=== PATIENT | female | born 1980 | race Caucasian/White ===

== ENCOUNTER 2024-11-26 13:50 | Emergency (ER) | payer SELFPAY ==
--- OUTSIDE RECORDS SUMMARY | 2024-11-26 13:59 | XMS REPORT | Continuity of Care Document ---
Author Name Unknown Address [address] [facility] [place] [address] Organization [facility] [place] Address [address] [facility] [place] [address] Care Team Providers Care Truck Driver'S Offsider Name Role Phone PCP, PATIENT DOES NOT HAVE A Primary Care Physic keron Unavailable SOCORRO NIETO Attending Clinician Unavail ANJEL Suazo Attending Clinician Unavailable Socorro Arevalo Attending Clinician + Payers Payer Name Policy Type Policy Number Effective Date Expirati on Date Source [employer] [facility] [facility] [id number] 2018 00:00:00 Problems Condition Name Condition Details Condition Category Status Onset Date Resolution Date Last Treatment Date Treating Clinician Comments Source Encounter for other contracept brisa management Encounter for other contracept brisa management Disease Active 08-27 00:00: 00 [facility] Normal delivery Normal delivery Disease Resolve d 07-14 00:00: 00 2024-08-27 00:00:00 2024-08-27 13:45:13 [facility] care and examinatio n immediatel y after delivery care and examinatio n immediatel y after delivery Disease Resolve d 07-14 00:00: 00 2024-08-27 00:00:00 2024-08-27 13:45:16 [facility] Allergies, Adverse Reactions, Alerts Allergy Name Allergy Type Status Severity Reaction(s) Onset Date Inactive Date Treating Clinician Comments Source DIVALPRO EX SODIUM DRUG INGREDI Active Hives 09-02 00:00: 00 [facility] Penicill ins Propensi ty to adverse reaction s to drug Active Unknown - See comments 07-13 00:00: 00 [facility] PENICILL INS Drug Class Active Unknown-Cmnt 07-13 00:00: 00 [facility] Social History Social Habit Start Date Stop Date Quantity Comments Source ASSERTION Possible [facility] Tobacco use and exposure 2024-08-27 00:00:00 2024-08-27 00:00:00 Smokeless tobacco non-user [facility] Alcoholic beverage intake 2024-08-27 00:00:00 2024-08-27 00:00:00 Ex-drinker (finding) [facility] History of Social function 2024-08-27 00:00:00 2024-08-27 00:00:00 [facility] Sex assigned at 1980 00:00:00 1980 00:00:00 [facility] Smoking Status Start Date Stop Date Source Never smoked tobacco [facility] Medications Ordered Medication Name Filled Medication Name Start Date Stop Date Current Medication? Ordering Clinician Indication Dosage Frequency Signature (SIG) Comments Components Source acyclovir 400 mg tablet 09-11 00:00: 00 Yes [id number] 400mg Take 1 tablet by mouth in the morning and 1 tablet in the evening. [facility] PHENYTOIN SODIUM EXTENDED (DILANTIN ORAL) 08-27 13:35: 30 Yes Take by mouth. [facility] Immunizations Ordered Immunization Name Filled Immunization Name Date Status Comments Source TDAP 2018-03-13 00:00:00 Completed [facility] Vital Signs Vital Name Observation Time Observation Value Comments S lindsaygeorge Systolic blood pressure 2024-08-27 18:29:00 114 mm[Hg] [facility] Diastolic blood pressure 2024-08-27 18:29:00 78 mm[Hg] [facility] Heart rate 2024-08-27 18:29:00 84 /min [facility] Body temperature 2024-08-27 18:29:00 36.78 Kari [facility] Respiratory rate 2024-08-27 18:29:00 17 /min [facility] Body height 2024-08-27 18:29:00 162.6 cm [facility] Body weight 2024-08-27 18:29:00 52.816 kg [facility] BMI 2024-08-27 18:29:00 19.99 kg/m2 [facility] Procedures Procedure Date / Time Performed Performing Clinicia n Source PAP SMEAR-LIQUID BASED-CP 2024-08-27 20:49:00 Socorro Nieto [facility] HIV 1/2 AG-AB WITH REFLEX 2024-08-27 19:34:00 Socorro Nieto [facility] SYPHILIS IGG/IGM 2024-08-27 19:34:00 Judah Nieto [facility] POCT TEST 2024-08-27 00:00:00 George Nieto [facility] Encounters Start Date/Time End Date/Time Encounter Type Admission Type Attending Clinicians Care Facility Care Department Encounter ID Source 2024-10-15 06:41:54 2024-10-15 23:59:00 Hospital Encounter R SOCORRO NIETO AT [facility] [id number] [facility] 2024-10-14 13:30:00 2024-10-14 13:30:00 Outpatient R ANJEL BORJA [facility] [id number] [facility] 2024-09-11 00:00:00 2024-09-11 15:30:23 Telephone Socorro Nieto [facility] INDUSTRIAL [employer]GANIZATION MANAGER [facility] [id number] [facility] 2024-09-11 11:00:00 2024-09-11 11:00:00 Outpatient R SOCORRO NIETO [facility] [id number] [facility] 2024-09-11 10:45:00 2024-09-11 10:45:00 Outpatient Gigi SOCORRO NIETO [facility] [id number] [facility] 2024-08-27 13:00:00 2024-08-27 14:40:58 Office Visit Socorro Barr [facility] INDUSTRIAL ORGANIZATION MANAGER [facility] [id number] [facility] 2024-07-17 14:06:16 2024-07-17 14:06:16 Outpatient SFA SFA [id number] Barry Devyn [place] Results Test Description Test Time Test Comments Results Result Co mments Source [facility] Notes Date/Time Note Provider Source 2024-09-11 15:29:46 Called pt, notified medication sent to pharmacy.verbalized understanding. Mirlande Joseph RN 09/11/24 3:30 PM [facility] 2024-09-11 15:17:46 Meds sent to pharmacy on file ADY Panda 09/11/2024 3:17 PM [facility] 2024-09-11 11:22:13 Brittany Abdi is a 44 year old female Pt is calling stating she discussed having herpes with provider at last visit. Pt now has an outbreak of herpes and is asking for medication to be called into [facility] pharmacy. Please call [phone] (home) [facility] [address] AT [address] Kristin Sahni [facility]
[2024-11-26 15:08] LABS: Absolute Lymphocytes (CBC) 1.8 K/uL (0.7-4.9); Hematocrit 38.5 % (36.0-45.0); Hemoglobin 13.3 g/dL (12.0-15.0); MCH 33.3 pg (27.0-35.0); MCHC 34.5 g/dL (32.0-36.0); MCV 96.5 fL (80-100); MPV 7.2 fL (7.6-11.3); Nucleated RBC Absolute Count 0.0 (0-0); Nucleated Red Blood Cells % 0.0 % (0-0); RBC Red Blood Cell Count 3.99 M/uL (3.86-4.86); White Blood Count 10.70 thou/uL (4.3-10.9)
[2024-11-26 15:11] LABS: Sqamous Epithelial <5 /HPF (None Seen); Urine Culture Reflex Order NOT NEEDED; Urine Microscopic Reflex YN ORDER UMIC
[2024-11-26] MEDS ORDERED: ONDANSETRON 4 MG/2 ML VIAL ONE (15:12)
[2024-11-26] MEDS ORDERED: LORazepam 2 MG/ML VIAL ONE (15:12)
[2024-11-26] MEDS ORDERED: NA CHLORIDE 0.9% 1,000 ML ONE (15:13)
[2024-11-26] MEDS ORDERED: MORPHINE 4 MG/ML SYR ONE (15:13)
[2024-11-26 15:20] LABS: METHAMPHETAM NEGATIVE (NEGATIVE); THC Cannibis NEGATIVE (NEGATIVE)
--- NOTE | 2024-11-26 15:23 | RAD REPORT ---
EXAM: Chest Single View HISTORY: 44 years Female CHEST PAIN COMPARISON: No prior exams FINDINGS: LUNGS/PLEURA: The lungs are clear. No pleural effusions or pneumothorax. No pulmonary edema. CARDIAC/MEDIASTINUM: The cardiac silhouette is within normal limits. UPPER ABDOMEN: No significant abnormality. BONES: No acute abnormality. LINES/TUBES/OTHER: N/A IMPRESSION: No evidence of acute cardiopulmonary disease.
[2024-11-26 15:32] LABS: ALT/SGPT 21 U/L (13-56); AST/SGOT 18 U/L (15-37); Albumin 3.4 g/dL (3.4-5.0); Albumin/Globulin Ratio 0.9 (1.1-1.8); Alkaline Phosphatase 64 U/L (45-117); Anion Gap 8.9 mEq/L (5.0-15.0); BUN Blood Urea Nitrogen 11 mg/dL (7-18); Globulin 3.9 g/dL (2.3-3.5); Glucose Level 97 mg/dL (74-106); NT PRO-BNP 59 pg/mL (<125); Potassium 3.9 mEq/L (3.5-5.1); Troponin High Sensitivity < 3.0 pg/mL (<58.9)
--- NOTE | 2024-11-26 15:54 | EDPHYS ---
Physician Documentation [facility] Name: Teri Wilkinson Age: 44 yrs Sex: Female : 1980 Arrival Date: 11/26/2024 Time: 13:50 Bed 12 Private MD: ED Physician Ze Dean HPI: 11/26 14:08 This 44 yrs old Female presents to ER via Ambulatory with complaints of dr5 Anxiety, Doesn't Feel Right. 14:08 Onset: The symptoms/episode began/occurred acutely. Patient is a 44-year-old female dr5 with history of anxiety, seizures, asthma coming in with possible anxiety attack. Patient reports she has difficulty catching her breath which makes breathing worse, numbness and tingling to hands, and chest pressure. Patient reports she was a previous meth user but does not use at the time. Patient states this started an hour ago when she was at the dentist having oral work done. Patient denies shortness of breath, fever, nausea, vomiting, diarrhea.. Historical: - Allergies: 14:06 PENICILLINS; ll1 - PMHx: 14:06 Anxiety; Seizure; Asthma; ll1 - PSHx: 14:06 oral surgery; R ear drained; ll1 - Immunization history:: Adult Immunizations up to date. - Infectious Disease History:: Denies. - Social history:: Smoking status: Reported history of juuling and/or vaping. ROS: 14:08 Constitutional: as per hpi dr5 Exam: 14:08 Constitutional: This is a well developed, well nourished patient who is awake, alert, dr5 and in no acute distress. Head/Face: Normocephalic, atraumatic. Eyes: Pupils equal round and reactive to light, extra-ocular motions intact. Lids and lashes normal. Conjunctiva and sclera are non-icteric and not injected. Cornea within normal limits. Periorbital areas with no swelling, redness, or edema. Neck: Trachea midline, no thyromegaly or masses palpated, and no cervical lymphadenopathy. Supple, full range of motion without nuchal rigidity, or vertebral point tenderness. No Meningismus. Chest/axilla: Normal chest wall appearance and motion. Nontender with no deformity. No lesions are appreciated. Cardiovascular: Regular rate and rhythm with a normal S1 and S2. Normal PMI, no JVD. No pulse deficits. Respiratory: Lungs have equal breath sounds bilaterally, clear to auscultation. No rales, rhonchi or wheezes noted. No increased work of breathing, no retractions or nasal flaring. Back: No spinal tenderness. No costovertebral tenderness. Full range of motion. Skin: Warm, dry with normal turgor. Normal color with no rashes, no lesions, and no evidence of cellulitis. MS/ Extremity: Pulses equal, no cyanosis. Neurovascular intact. Full, normal range of motion. Neuro: Awake and alert, GCS 15, oriented to person, place, time, and situation. Cranial nerves II-XII grossly intact. Motor strength 5/5 in all extremities. Sensory grossly intact. Cerebellar exam normal. Normal gait. Vital Signs: 14:04 BP 129 / 91; Pulse 90; Resp 17; Pulse Ox 100% ; Weight 54.43 kg; Height 5 ft. 4 in. ; ll1 Pain 10/10; 14:04 Body Mass Index 20.60 (54.43 kg, 162.56 cm) ll1 14:04 Pain Scale: Adult ll1 MDM: 13:59 Medical Screening Exam initiated dr5 15:54 Differential diagnosis: viral Infection, bacterial infection, Anxiety, anemia, dr5 substance abuse. Data reviewed: vital signs, nurses notes, lab test result(s), CBC, white blood cell count, hemoglobin, hematocrit, platelets, electrolytes, sodium, potassium, chloride, serum bicarbonate, BUN, creatinine, serum glucose, urinalysis, urine drug screen, EKG, radiologic studies, plain films. Consideration of Admission/Observation Escalation of care including admission/observation considered. Escalation considered patient found to have elevated troponin. I considered the following discharge prescriptions or medication management in the emergency department I discussed and recommended Over The Counter medications, Medications were administered in the Emergency Department. See MAR. Independent interpretation of the following test(s) in the Emergency Department X-Ray: My interpretation is Independent interpretation of x-ray does not reveal pneumonia. Historians other than the Patient: Parent: Mother at bedside. Care significantly affected by the following chronic conditions: Anxiety, seizure, asthma. Care significantly affected by the following Social Determinants of Health: Poor access to healthcare and/or lack of insurance, Poor access to transportation, Problems related to employment. Scoring Tools HEART Score: History: ECG: Age: Risk Factors: Troponin: Total Score = 0. Counseling: I had a detailed discussion with the patient and/or guardian regarding the historical points, exam findings, and any diagnostic results supporting the discharge/admit diagnosis, the presence of at least one elevated blood pressure reading (>120/80) during this emergency department visit, lab results, radiology results, the need for outpatient follow up, for definitive care, a family practitioner, to return to the emergency department if symptoms worsen or persist or if there are any questions or concerns that arise at home. Medication response: Normal saline, Ativan, Zofran. Response to treatment: the patient's symptoms have markedly improved after treatment. Special discussion: I discussed with the patient/guardian in detail that at this point there is no indication for admission to the hospital. It is understood, however, that if the symptoms persist or worsen the patient needs to return immediately for re-evaluation. Based on the history and exam findings, there is no indication for further emergent testing or inpatient evaluation. I discussed with the patient/guardian the need to see the primary care provider for further evaluation of the symptoms. ED course: All labs and imaging printed and given to patient take with her to primary care doctor. Will prescribe patient hydroxyzine to take as needed for panic attack. Work note given. All questions answered. Strict ER precautions given.. 11/26 14:08 Order name: CBC with Diff; Complete Time: 15:47 [facility] 11/26 14:08 Order name: NT PRO-BNP; Complete Time: 15:42 [facility] 11/26 14:08 Order name: Troponin HS; Complete Time: 15:42 [facility] 11/26 14:08 Order name: UA Rfx Alejo Cult if indicated; Complete Time: 15:14 [facility] 11/26 14:08 Order name: Test, Urine; Complete Time: 15:14 [facility] 11/26 14:08 Order name: CMP; Complete Time: 15:42 [facility] 11/26 14:49 Order name: UDS; Complete Time: 15:22 [facility] 11/26 14:08 Order name: XRAY Chest (1 view); Complete Time: 15:24 [facility] 11/26 14:08 Order name: Cardiac monitoring; Complete Time: 15:41 [facility] 11/26 14:08 Order name: EKG - Nurse/Tech; Complete Time: 15:40 [facility] 11/26 14:08 Order name: IV Saline Lock; Complete Time: 15:20 dr5 11/26 14:08 Order name: Labs collected and sent; Complete Time: 15: dr5 11/26 14:08 Order name: O2 Sat Monitoring; Complete Time: 15: dr5 EC:39 Rate is 74 beats/min. Rhythm is regular. QRS [place] is Normal. WA interval is normal at dr5 136 msec. QRS interval is normal at 78 msec. QT interval is normal at 436 msec. Clinical impression: Normal ECG and No evidence of ischemia. Administered Medications: 15:19 Drug: Ativan IVP 1 mg IVP once Route: IVP; Site: right antecubital; kb3 16:12 Follow up: Response: No adverse reaction; Anxiety decreased ss 15:20 Drug: NS 0.9% IV 1000 ml IV at 1000 ml once; to be given as a bolus over 60 minutes kb3 Route: IV; Rate: 1000 ml; Site: right antecubital; 16:11 Follow up: IV Status: Completed infusion; IV Intake: 1000ml ss 15:20 Not Given (Patient Refused): morphineor iv 4 mg IVP once over 4 mins kb3 15:20 Drug: Ondansetron IVP 4 mg IVP once; over 2 minutes Route: IVP; Site: right antecubital;kb3 16:12 Follow up: Response: No adverse reaction ss Disposition Summary: 11/26/24 15:53 Discharge Ordered Notes: Location: Home dr5 Condition: Stable dr5 Diagnosis - Generalized anxiety disorder dr5 Followup: dr5 - With: Emergency Department - When: As needed - Reason: Worsening of condition Followup: dr5 - With: Private Physician - When: 1 - 2 days - Reason: Recheck today's complaints, Continuance of care, Re-evaluation by your physician Discharge Instructions: - Discharge Summary Sheet dr5 - Panic Attack dr5 Forms: - Work release form dr5 - Medication Reconciliation Form dr5 - Patient Portal Instructions dr5 - Leadership Thank You Letter dr5 Prescriptions: - Hydroxyzine HCl 25 mg Oral Tablet - take 1 tablet ORAL route every 6 hours As needed; 30 tablet; Refills: 0, dr5 Product Selection Permitted Signatures: Dispatcher [employer] EDMS Karl Paul RN RN ll1 Arielle Macias RN RN kb3 Manuel Lantigua, AAKASH-C SPORT PSYCHOLOGIST-Cdr5 Eva Granados RN ss Corrections: (The following items were deleted from the chart) 14:08 14:08 CBC+H.LAB.BRZ ordered. EDMS EDMS 14: 14:08 PROBNP+C.LAB.BRZ ordered. EDMS EDMS 14: 14:08 Troponin High Sensitivity+C.LAB.BRZ ordered. EDMS EDMS 14: 14:08 UA Rfx Alejo Cult if indicated+U.LAB.BRZ ordered. EDMS EDMS 14: 14:08 Test, Urine+UC.LAB.BRZ ordered. EDMS EDMS 14: 14:08 COMPREHENSIVE METABOLIC PANEL+C.LAB.BRZ ordered. EDMS EDMS 15:21 14:08 Oxygen Per Protocol ordered. dr5 kb3
--- NOTE | 2024-11-26 15:54 | ER ---
Nurse's Notes [facility] Name: Teri Wilkinson Age: 44 yrs Sex: Female : 1980 Arrival Date: 11/26/2024 Time: 13:50 Bed 12 Private MD: Diagnosis: Generalized anxiety disorder Presentation: 11/26 14:04 Chief complaint: Patient states: At dentist and started to feel anxious, shaky, chest ll1 pressure, SOB, and head pressure. Coronavirus screen: Client denies travel out of the [place] in the last 14 days. At this time, the client does not indicate any symptoms associated with coronavirus-19. Ebola Screen: Patient denies travel to an Ebola-affected area in the 21 days before illness onset. Initial Sepsis Screen: Does the patient meet any 2 criteria? No. Patient's initial sepsis screen is negative. Does the patient have a suspected source of infection? No. Patient's initial sepsis screen is negative. Risk Assessment: Do you want to hurt yourself or someone else? Patient reports no desire to harm self or others. Onset of symptoms was November 26, 2024. 14:04 Method Of Arrival: Ambulatory ll1 14:04 Acuity: DIMA 3 ll1 Historical: - Allergies: 14:06 PENICILLINS; ll1 - PMHx: 14:06 Anxiety; Seizure; Asthma; ll1 - PSHx: 14:06 oral surgery; R ear drained; ll1 - Immunization history:: Adult Immunizations up to date. - Infectious Disease History:: Denies. - Social history:: Smoking status: Reported history of juuling and/or vaping. Screenin:09 Abuse screen: Denies threats or abuse. Denies injuries from another. ss 16:09 Nutritional screening: No deficits noted. Tuberculosis screening: Never had TB. ss Assessment: 16:09 Reassessment: Patient appears in no apparent distress at this time. Patient and/or ss family updated on plan of care and expected duration. Pain level reassessed. Patient is alert, oriented x 3, equal unlabored respirations, skin warm/dry/pink. Patient states feeling better. Patient states symptoms have improved. Vital Signs: 14:04 BP 129 / 91; Pulse 90; Resp 17; Pulse Ox 100% ; Weight 54.43 kg; Height 5 ft. 4 in. ; ll1 Pain 10; 14:04 Body Mass Index 20.60 (54.43 kg, 162.56 cm) ll1 14:04 Pain Scale: Adult ll1 ED Course: 13:57 Patient arrived in ED. cj3 13:57 Manuel Lantigua FNP-C [facility] dr5 13:57 Ze Dean MD is Attending Physician. dr5 14:06 Triage completed. ll1 14:07 Arm band placed on. ll1 14:51 XRAY Chest (1 view) In Process Unspecified. EDMS 15:41 EKG done, by rehab nursing tech. reviewed by Manuel HARTMAN. ts3 15:41 Initial lab(s) drawn, by laboratory courier, sent to lab. Inserted saline lock: 20 gauge in right ts3 antecubital area, using aseptic technique. Blood collected. Flushed with 10 mL NS. 16:09 Patient has correct armband on for positive identification. ss Administered Medications: 15:19 Drug: Ativan IVP 1 mg IVP once Route: IVP; Site: right antecubital; kb3 16:12 Follow up: Response: No adverse reaction; Anxiety decreased ss 15:20 Drug: NS 0.9% IV 1000 ml IV at 1000 ml once; to be given as a bolus over 60 minutes kb3 Route: IV; Rate: 1000 ml; Site: right antecubital; 16:11 Follow up: IV Status: Completed infusion; IV Intake: 1000ml ss 15:20 Not Given (Patient Refused): morphineor iv 4 mg IVP once over 4 mins kb3 15:20 Drug: Ondansetron IVP 4 mg IVP once; over 2 minutes Route: IVP; Site: right antecubital;kb3 16:12 Follow up: Response: No adverse reaction ss Medication: 16:09 VIS not applicable for this client. ss Intake: 16:11 IV: 1000ml; Total: 1000ml. ss Outcome: 15:53 Discharge ordered by . dr5 16:09 Discharged to home ambulatory, ss 16:09 Condition: good 16:09 Discharge instructions given to patient, family, Instructed on discharge instructions, follow up and referral plans. medication usage, Demonstrated understanding of instructions, follow-up care, medications, Prescriptions given X 1, 16:12 Patient left the ED. ss Signatures: Dispatcher [employer] EDMS Darwin, Eva, RN RN ss Humberto, Karl, RN RN ll1 Arielle Macias, RN RN kb3 Manuel Lantigua, PLUMBER HELPER-C PLUMBER HELPER-[facility]5 Marcia Germain 3 Bryn, Inez 3
[2024-11-26 16:29] VITALS: BP 129/91; O2SAT 100
== END 2024-11-26 16:12 | disposition home or self-care (01) ==
LOC: ER 13:50
DX: F41.1 Generalized anxiety disorder (principal)
CPT/HCPCS: 36415; 71045; 80053; 80307; 81001; 81025; 83880; 84484; 85025; 93005; 96361; 96374; 96375; 99284; J2405; J7030